=== PATIENT | male | born 1985 | race Two or more races ===

== ENCOUNTER → 2020-05-19 | Outpatient (CLI) | payer OTHER | END | disposition home or self-care (01) | LOC: OFIC 805 09:45 | PROVIDERS: ATTEND Otolaryngology | DX: R09.81 Nasal congestion (principal) ==

== ENCOUNTER 2020-08-30 13:21 | Outpatient (CLI) | payer OTHER | END 2020-08-30 14:29 | disposition home or self-care (01) | LOC: OFIC 805 13:21 | PROVIDERS: ATTEND Otolaryngology Otology & Neurotology | DX: R09.81 Nasal congestion (principal); J31.0 Chronic rhinitis ==